=== PATIENT | female | born 1995 | race Caucasian/White ===

== ENCOUNTER 2017-06-20 02:58 | Emergency (ER) | payer MEDICAID ==
[~2017-06-20] VITALS: Ht 152.4 cm; Wt 96.0 kg
[2017-06-20] MEDS ORDERED: ALBUTEROL (0.083%) 2.5MG/3ML NEB HHN STA (06:13)
[2017-06-20] MEDS ORDERED: METHYLPREDNISOLONE SOD SUCC 125 MG/2 ML VIAL IM STA (06:13)
[2017-06-20] MEDS ORDERED: IPRATROPIUM BROMIDE (0.02%) 0.5MG/2.5ML NEB HHN STA (06:13)
[2017-06-20 08:03] VITALS: BP 121/67
== END 2017-06-20 08:06 | disposition home or self-care (01) ==
LOC: ER 02:58
DX: J45.901 Unspecified asthma with (acute) exacerbation (principal)
CPT/HCPCS: 94640; 96372; 99283; J2930; J7611; Z7610